=== PATIENT | female | born 1950 | race Caucasian/White ===

== ENCOUNTER 2020-05-30 11:16 | Outpatient (CLI) | payer MEDICARE, SELFPAY ==
--- NOTE | ~2020-05-30 | XR_ITS ---
EXAMINATION: XR shoulder LT min 2V DATE: 05/30/2020 11:47 INDICATION: Left shoulder pain. TECHNIQUE: 4 views of left shoulder were obtained. COMPARISON: None. FINDINGS: Bone alignment is normal. No fracture. There is mild osteoarthritis of glenohumeral joint a nd acromioclavicular joint. IMPRESSION: 1. Mild polyarticular osteoarthritis. Reviewed, dictated and finalized at location A.
== END 2020-05-30 11:17 | disposition home or self-care (01) ==
PROVIDERS: PCP Internal Medicine; Visit Provider Physician Assistant
DX: M19.012 Primary osteoarthritis, left shoulder (principal)
CPT/HCPCS: 73030

== ENCOUNTER 2021-04-06 14:50 | Outpatient (CLI) | payer MEDICARE, SELFPAY ==
--- NOTE | ~2021-04-06 | MM_ITS ---
EXAMINATION: MM screening lc BI w jewel HISTORY: Screening TECHNIQUE: Craniocaudal and mediolateral oblique 3-D tomosynthesis images were obtained and synthetic 2-D images were generated. CAD analysis was submitted and interpreted. COMPARISON: Comparison to multiple prior studies sequentially, with oldest reviewed study dated 06/2013. BREAST PARENCHYMAL COMPOSITION: The breasts are heterogeneously dense, which may obscure small masses . FINDINGS: There is no evidence of suspicious mass, calcification, or architectural distortion to sugg est malignancy in either breast. There has been no suspicious interval change. IMPRESSION: 1. No mammographic evidence of malignancy. 2. Recommend routine screening mammography in one year. BI-RADS Category 1: Negative Reviewed, dictated and finalized at location A.
== END 2021-04-06 14:51 | disposition home or self-care (01) ==
LOC: ANHIMG 14:52
PROVIDERS: PCP Internal Medicine; Visit Provider Obstetrics & Gynecology
DX: Z12.31 Encounter for screening mammogram for malignant neoplasm of breast (principal)
CPT/HCPCS: 77063; 77067

== ENCOUNTER 2021-05-08 01:34 | Day surgery (SDC) | payer MEDICARE, SELFPAY ==
[2021-04-26 13:54] VITALS: BMI 21.3
[2021-05-08 09:05] VITALS: BP 151/83; PULSE 85; RESP 18; TEMP 36.7; O2SAT 97; BMI 20.9
[2021-05-08] MEDS: LACTATED RINGERS 1,000 ML 150 ML IV CONT (09:15)
--- NOTE | 2021-05-08 09:19 | WPDANESEPPF ---
Anes - Initial Pre Proc Eval Procedure: Operation Date: 05/08/21 10:00 Proposed Procedures p Esophagogastroduodenoscopy & Colonoscopy - Rickey Turner MD Date/Time: 05/08/21 09:19 Surgeon: Rickey Turner MD Pre Op Diagnosis: GERD, abnormal stools Patient Data Age: 70 Gender: F Height: 1.68 m Weight: 59 kg Last Vital Signs Temp 98.1 F 05/08/21 09:05 Pulse 85 05/08/21 09:05 Resp 18 05/08/21 09:05 BP 151/83 H 05/08/21 09:05 Pulse Ox 97 05/08/21 09:05 Allergies Allergy/AdvReac Type Severity Reaction Status Date / Time Penicillins Allergy Severe Hives Verified 05/08/21 09:02 Home Medications Medication Instructions Recorded Confirmed Type albuterol sulfate 90 mcg/actuation 2 puff INHALATION Q4-6H PRN gm 10/05/19 05/08/21 History aerosol inhaler clobetasol 0.05 % scalp solution 1 applic TOPICAL BID 10/05/19 05/08/21 History risedronate 5 mg tablet 5 mg PO WEEKLY 10/05/19 05/08/21 History citalopram 40 mg tablet 40 mg PO DAILY #90 tablet 04/18/21 05/08/21 Rx lisinopril 40 mg tablet 40 mg PO DAILY #90 tablet 04/18/21 05/08/21 Rx simvastatin 80 mg tablet 80 mg PO DAILY #90 tablet 04/18/21 05/08/21 Rx montelukast 10 mg PO DAILY PRN 04/26/21 05/08/21 History Patient hx anesthesia problems: none Family hx anesthesia problems: none PMFSH Past Medical History Medical History (Updated 05/08/21 @ 09:15 by Shai Lopes MD) Arthritis Asthma Essential (primary) hypertension Gastro-esophageal reflux disease without esophagitis Hypercholesterolemia Family History Family History Sibling Patient's brother is in good health Family history of primary malignant neoplasm of liver, Onset Age: 36 Patient's sister is Mother Cerebrovascular accident, Onset Age: 72 Patient's mother is Father Patient's father is Social History Social History (Reviewed 04/18/21 @ 10:21 by MARY Ozuna Smoking packs per day: 1 Smoking cigarettes per day: 20.0 Years smoked: 40 Smoking pack-years: 40.00 Smoking status: Former smoker Second hand tobacco smoke exposure: No Smoking end date: 11/03/09 Alcohol intake: current Alcohol use details: Monthly Substance use: never Living arrangements: with family Spiritual care concerns: No Anes - Eval Final PreProcedure Day of Procedure 05/08/21 09:19 Patient weight: normal Heart: regular rate and rhythm Lungs: clear to auscultation Airway: Mallampati scale class II Neurological: alert and oriented Last oral intake: >/= 8 hours ASA classification: III Emergent: no Anesthetic plan: proceed Anesthesia type and monitoring: general GIVS and standard monitoring Informed Consent: The patient's anesthetic plan and its attendant risks and benefits were discussed with the patient/family/POA. Questions were solicited and answers provided to the satisfaction of the patient/family/POA.
--- NOTE | 2021-05-08 09:32 | WPDGICN ---
Assessment and Plan Assessment and plan (1) GERD (gastroesophageal reflux disease): Code(s): K21.9 - Gastro-esophageal reflux disease without esophagitis Status: Acute Assessment and Plan: Patient has a history of heartburn. This occurs intermittently. In the past been felt to have acid reflux disease plan to perform EGD to assess more thoroughly. Especially with feel sensation of lump in the throat. (2) Dysphagia: Code(s): R13.10 - Dysphagia, unspecified Status: Acute Assessment and Plan: Patient feels discomfort in the upper chest. Sometimes worse with eating. She is able to eat without difficulty. However has discomfort and soreness in the upper throat feels as though something may be caught this area but is able to swallow without difficulty. Cannot exclude a globus type phenomenon. Plan to assess more thoroughly with EGD. (3) Encounter for screening colonoscopy: Code(s): Z12.11 - Encounter for screening for malignant neoplasm of colon Status: Acute Assessment and Plan: Neoplasia screening colonoscopy advised. Patient appears be at average risk for colon polyps. This procedure follow separately. GI Consult Note Consult date/time: 05/08/21 09:32 HPI: Charlene Varma is a 70 year old female Presents for both screening colonoscopy and EGD. Patient desires neoplasia screening. Her weight appetite bowel movements are normal. She has no abdominal pain. She has not had bleeding. There is no family history of colon polyps. Has been many years since previous colonoscopy. Patient also complains of sore spot in the upper portion of her throat. She has feels a lump in this area. She feels as though a pill may be stuck. This occurs intermittently. There is no specific aggravating or alleviating factors. Patient is able to eat without difficulty. She has no weight loss. She has had no bleeding. In the past she has had heartburn. This is worsened since November. She has felt have underlying acid reflux disease. Currently on no specific medications for this however. Review of Systems Review of Systems: All systems reviewed & are unremarkable except as noted in HPI and below [facility] Past Medical History Medical History (Updated 05/08/21 @ 09:34 by Rickey Turner MD) Arthritis Asthma Essential (primary) hypertension Gastro-esophageal reflux disease without esophagitis Hypercholesterolemia Family History Family History Sibling Patient's brother is in good health Family history of primary malignant neoplasm of liver, Onset Age: 36 Patient's sister is Mother Cerebrovascular accident, Onset Age: 72 Patient's mother is Father Patient's father is Social History Social History Smoking packs per day: 1 Smoking cigarettes per day: 20.0 Years smoked: 40 Smoking pack-years: 40.00 Smoking status: Former smoker Second hand tobacco smoke exposure: No Smoking end date: 11/03/09 Alcohol intake: current Alcohol use details: Monthly Substance use: never Living arrangements: with family Spiritual care concerns: No Meds Home Medications and Allergies Home Medications Medication Instructions Recorded Confirmed Type albuterol sulfate 90 mcg/actuation 2 puff INHALATION Q4-6H PRN gm 10/05/19 05/08/21 History aerosol inhaler clobetasol 0.05 % scalp solution 1 applic TOPICAL BID 10/05/19 05/08/21 History risedronate 5 mg tablet 5 mg PO WEEKLY 10/05/19 05/08/21 History citalopram 40 mg tablet 40 mg PO DAILY #90 tablet 04/18/21 05/08/21 Rx lisinopril 40 mg tablet 40 mg PO DAILY #90 tablet 04/18/21 05/08/21 Rx simvastatin 80 mg tablet 80 mg PO DAILY #90 tablet 04/18/21 05/08/21 Rx montelukast 10 mg PO DAILY PRN 04/26/21 05/08/21 History Allergies Allergy/A
--- NOTE | 2021-05-08 10:47 | SUR.OPER ---
EGD START 1016, STOP 1025 COLONOSCOPY START 1034, STOP 1046
[2021-05-08 10:50] VITALS: BP 94/41; PULSE 69; RESP 24; O2SAT 100
[2021-05-08 11:00] VITALS: BP 103/66; PULSE 67; RESP 17; O2SAT 100
[2021-05-08 11:10] VITALS: BP 118/75; PULSE 60; RESP 28; O2SAT 98
== END 2021-05-08 11:40 | disposition home or self-care (01) ==
PROVIDERS: PCP Internal Medicine; Visit Provider Internal Medicine Gastroenterology
PROC: 0DJ08ZZ Inspection of Upper Intestinal Tract, Via Natural or Artificial Opening Endoscopic (ICD-10-PCS; CPT 43235; principal; 2021-05-08 10:00)
DX: Z12.11 Encounter for screening for malignant neoplasm of colon (principal); K44.9 Diaphragmatic hernia without obstruction or gangrene; K22.2 Esophageal obstruction; K64.8 Other hemorrhoids; K21.9 Gastro-esophageal reflux disease without esophagitis; R19.5 Other fecal abnormalities; Z79.51 Long term (current) use of inhaled steroids; M19.90 Unspecified osteoarthritis, unspecified site; J45.909 Unspecified asthma, uncomplicated; I10 Essential (primary) hypertension; E78.00 Pure hypercholesterolemia, unspecified; Z87.891 Personal history of nicotine dependence; R13.19 Other dysphagia
CPT/HCPCS: 43249; G0121; C1726; J2704; J7120

== ENCOUNTER 2023-06-05 07:52 | Outpatient (CLI) | payer MEDICARE, SELFPAY ==
--- NOTE | ~2023-06-05 | MM_ITS ---
EXAMINATION: MM screening lc BI w jewel HISTORY: Screening mammogram TECHNIQUE: Craniocaudal and mediolateral oblique 3-D tomosynthesis images were obtained and synthetic 2-D images were generated. CAD analysis was submitted and interpreted. COMPARISON: 04/2021, 03/16/2019, 07/31/2017 bilateral screening mammogram examinations BREAST PARENCHYMAL COMPOSITION: There are scattered areas of fibroglandular density. FINDINGS: There is no evidence of suspicious mass, calcification, or architectural distortion to sugg est malignancy in either breast. There has been no suspicious interval change. IMPRESSION: 1. No mammographic evidence of malignancy. 2. Recommend routine screening mammography in one year. BI-RADS Category 1: Negative Reviewed, dictated and finalized at location A.
== END 2023-06-05 07:53 | disposition home or self-care (01) ==
PROVIDERS: PCP Internal Medicine; Visit Provider Obstetrics & Gynecology
DX: Z12.31 Encounter for screening mammogram for malignant neoplasm of breast (principal)
CPT/HCPCS: 77063; 77067

== ENCOUNTER 2024-12-30 10:11 | Outpatient (CLI) | payer MEDICARE, SELFPAY | END 2024-12-30 10:12 | disposition home or self-care (01) | LOC: ANHIMG 10:13 | PROVIDERS: PCP Internal Medicine; Visit Provider Internal Medicine | DX: Z12.31 Encounter for screening mammogram for malignant neoplasm of breast (principal) | CPT/HCPCS: 77063; 77067 ==

== ENCOUNTER 2025-02-28 09:45 | Outpatient (CLI) | payer MEDICARE, SELFPAY ==
--- NOTE | ~2025-02-28 | XR_ITS ---
EXAMINATION: XR barium swallow DATE: 02/28/2025 11:17 INDICATION: Dysphagia TECHNIQUE: The patient drank thick barium and thin barium. Fluoroscopy of the hypopharynx and esophagus was performed. Fluoroscopy exposure time was 2.5 minutes. The total number of images was 45. The dose-area product was 25.3 Gy-cm^2. COMPARISON: None. FINDINGS: No penetration or aspiration with thin liquids. Contrast extended to the level of the distal esophagus only. After approximately 30 minutes, the lowe r esophageal sphincter relaxed allowing for passage of a small trickle of contrast into the decompres sed stomach. The lower esophageal sphincter allowed a medial to lateral opening of approximately 3.4 mm prior to e ntering the stomach. The upper third of the esophagus dilated to approximately 5.4 cm in medial to lateral dimension prior to relaxation of the lower esophageal sphincter with significant tertiary retractions and a large am ount of reflux identified. IMPRESSION: Findings at the level of the lower esophageal sphincter for which cross-sectional imaging (contrast-e nhanced CT examination of the abdomen and pelvis) is recommended for further evaluation. Reviewed, dictated and finalized at location A. IMPRESSION: Findings at the level of the lower esophageal sphincter for which cross-section al imaging (contrast-enhanced CT examination of the abdomen and pelvis) is jose mmended for further evaluation.
--- OUTSIDE RECORDS SUMMARY | 2025-02-28 10:49 | XMS_ITS | Referral Summary ---
Author Organization [facility] Address [facility] [place] [address] Care Team Providers Care Felting Machine Operator Helper Name Role Phone Urban Sommer DO Primary Care Provider [phone] Encounters Date Type Department Care Team Description 02/11/2025 Telephone [facility] [address] [place] [phone] Filiberto Sibley, RN 02/11/2025 Telephone [facility] [address] [place] [phone] Filiberto Sibley, RN 02/10/2025 [facility] [address] [place] [phone] Filiberto Sibley RN 02/10/2025 8:22 AM CDT - 02/10/2025 11:59 PM CDT Hospital Encounter [address] [phone] Dysphagia, unspecified type Discharge Disposition: Discharge to home or self care 02/04/[address] [phone] Emily Mcdermott RN from Last 3 Months Allergies Active Allergy Reactions Criticality Noted Date Comments Penicillins Anaphylaxis High 02/04/2025 Medications lisinopriL (PRINIVIL,ZESTR IL) 40 mg tablet Take 1 tablet (40 mg total) by mouth daily 11/12/2024 Active simvastatin (ZOCOR) 80 mg tablet Take 1 tablet (80 mg total) by mouth daily 11/12/2024 Active metoprolol XL (TOPROL-XL) 50 mg extended release tablet Take 1 tablet (50 mg total) by mouth daily 11/22/2024 Active citalopram (CeleXA) 40 mg tablet Take 1 tablet (40 mg total) by mouth daily 11/12/2024 Active alendronate (FOSAMAX) 70 mg tablet Take 1 tablet (70 mg total) by mouth every 7 days 12/08/2024 Active ALPRAZolam (XANAX) 0.25 mg tablet Take 2 tablets (0.5 mg total) by mouth nightly as needed for anxiety 01/24/2025 Active Social History Tobacco Use Types Packs/Day Years Used Date Smoking Tobacco: Former Cigarettes Q uit: 2013 Tobacco Cessation:Counseling Given: Not Answered Personal Safety Answer Date Recorded Have you ever been in or are you currently in a harmful physical or emotional relationship or is someone making you feel afraid or unsafe? 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 Gender Identity Not on file Sexual Orientation Not on file Last Filed Vital Signs Vital Sign Reading Time Taken Comments Blood Pressure 200/84 02/10/2025 8:30 AM CDT Pulse 64 02/10/2025 8:30 AM CDT Temperature - - Respiratory Rate - - Oxygen Saturation - - Inhaled Oxygen Concentration - - Weight - - Height - - Body Mass Index - - Plan of Treatment Not on file Insurance A[employer] MEDICARE AETNA MEDICARE Care Teams Felting Machine Operator Helper Relationship Specialty Start Date End Date Urban Sommer DO [address] [facility] [address] [place] [address] PCP - General Internal Medicine 02/10/25
--- OUTSIDE RECORDS SUMMARY | 2025-02-28 10:49 | XMS_ITS | Clinical Summary ---
Author Organization [facility] Address [address] [place] [address] Care Team Providers Care Salt Miner Name Role Phone Urban Sommer DO Primary Care Provider [phone] Allergies Active Allergy Reactions Criticality Noted Date [...] nightly as needed for anxiety 01/24/2025 Active Encounters Date Type Department Care Team Description 02/11/2025 Telephone [facility] [address] [place] [phone] Filiberto Sibley RN 02/11/2025 Telephone [facility] [address] [place] [phone] Filiberto Sibley RN 02/10/2025 8:22 AM CDT - 02/10/2025 11:59 PM CDT Hospital Encounter [facility] [address] [place] [phone] Dysphagia, unspecified type Discharge Disposition: Discharge to home or self care 02/10/2025 Telephone [facility] [address] [place] [phone] Filiberto Sibley RN 02/04/2025 Telephone [facility] [address] [place] [phone] Emily Mcdermott RN from Last 3 Months Surgical History Surgery Date Site/Laterality Comments HYSTERECTOMY BACK SURGERY Medical History Medical History Date Comments Hyperlipidemia Hypertension Social History Tobacco Use Types Packs/Day Years [...] on file 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 Gender Identity Not on file Sexual Orientation Not on file Obstetrics History Last Filed Vital Signs Vital Sign Reading Time Taken Comments Blood Pressure 200/84 02/10/2025 8:30 AM CDT Pulse 64 02/10/2025 8:30 AM CDT Temperature - - Respiratory Rate - - Oxygen Saturation - - Inhaled Oxygen Concentration - - Weight - - Height - - Body Mass Index - - Plan of Treatment Health Maintenance Due Date Last Done Comments Breast Cancer Screening-Mammogram 1952 Colon Cancer Screening-Colonoscopy 1950 Depression Screening 1952 Fall Risk Assessment 1950 Hepatitis C Screening 1950 Osteoporosis Screening-Bone Density Scan 1952 Hepatitis B Screening 1970 Well Visit 65+ 2017 Covid-19 Vaccine (2023-2 5 season) 2025 08/13/2024, 08/27/2023, 08/29/2022, Additional history exists DTaP/Tdap/Td Vaccine (2 - Td or Tdap) 08/09/2028 08/09/2018 Pneumococcal vaccine 65+ Completed 12/12/2022 Zoster Vaccine Completed 12/12/2022, 08/05/2022 Influenza Vaccine Completed 08/13/2024, , 08/05/2022, Additional history exists Insurance [facility] MEDICARE T MEDICARE Care Teams Salt Miner Relationship Specialty Start Date End Date Urban Sommer DO [address] [id number] PCP - General Internal Medicine 02/10/25
== END 2025-02-28 09:46 | disposition home or self-care (01) ==
PROVIDERS: PCP Internal Medicine; Visit Provider Nurse Practitioner
DX: K21.9 Gastro-esophageal reflux disease without esophagitis (principal); K22.89 Other specified disease of esophagus; K44.9 Diaphragmatic hernia without obstruction or gangrene; R13.10 Dysphagia, unspecified
CPT/HCPCS: 74220

== ENCOUNTER 2025-03-07 06:32 | Outpatient (CLI) | payer MEDICARE, SELFPAY ==
--- NOTE | ~2025-03-07 | CT_ITS ---
CT of the Abdomen and Pelvis: Indication: Abnormal barium swallow Technique: 2.5 mm axial scans were obtained through the abdomen and pelvis following intravenous adm inistration of 100 cc of Omnipaque 350. Dose reduction technique was used on this scan by utilizing a utomated exposure control and iterative reconstruction technique. The dose-length product (DLP) was 5 59.07 mGy-cm. Findings: Scans through the lung bases are unremarkable. There is prominent circumferential wall thi ckening visualized distal esophagus. Moderate hiatal hernia present. The liver, spleen, pancreas, gallbladder, adrenals and kidneys are within normal limits. There are ex tensive atherosclerotic calcifications of the aorta and iliac vessels. No lymphadenopathy. No bowel obstruction or bowel wall thickening. There is no evidence to suggest acute appendicitis. Images through the pelvis were performed. Urinary bladder unremarkable. Status post hysterectomy. No pelvic mass seen. No ascites. Impression: Circumferential wall thickening of the visualized distal esophagus. Most of the distal esophagus is e xcluded from the [id number] however, probably related to moderate hiatal hernia which is present. Esophageal neoplasm is consideration versus severe esophagitis. Correlate clinically. Consider dedica bebe chest CT versus endoscopy for further evaluation. Reviewed, dictated and finalized at [facility]. Impression: Circumferential wall thickening of the visualized distal esophagus. Most of the distal esophagus is excluded from the [id number]-[id number] however, probably related to moderate hiatal hernia which is present. Esophageal neoplasm is consideratio n versus severe esophagitis. Correlate clinically. Consider dedicated chest CT versus endoscopy for further evaluation.
--- OUTSIDE RECORDS SUMMARY | 2025-03-07 06:38 | XMS_ITS | Referral Summary ---
Author Organization [facility] Address [address] [place] [address] Care Team Providers Care Wholesale Buyer Name Role Phone Urban Sommer DO Primary Care Provider [phone] Encounters Date Type Department Care Team Description 02/11/2025 Telephone [facility] [address] [place] [phone] Filiberto Sibley, RN 02/11/2025 Telephone [facility] [address] [place] [phone] Filiberto iSbley, RN 02/10/2025 [facility] [address] [place] [phone] Filiberto Sibley RN 02/10/2025 8:22 AM CDT - 02/10/2025 11:59 PM CDT Hospital Encounter [address] [phone] Dysphagia, unspecified type Discharge Disposition: Discharge to home or self care 02/04/[address] [phone] Emily Mcdermott RN from Last [...] on file 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
--- OUTSIDE RECORDS SUMMARY | 2025-03-07 06:38 | XMS_ITS | Clinical Summary ---
Author Organization [facility] Address [address] [place] [address] Care Team Providers Care Frame Hand Name Role Phone Urban Sommer DO Primary Care Provider [phone] Allergies Active Allergy Reactions Criticality Noted Date [...] Type Department Care Team Description 02/11/2025 Telephone [facility] [address] [place] [phone] Filiberto Sibley RN 02/11/2025 Telephone [facility] [address] [place] [phone] Filiberto Sibley RN 02/10/2025 8:22 AM CDT - 02/10/2025 11:59 PM CDT Hospital Encounter [facility] [address] [place] [phone] Dysphagia, unspecified type Discharge Disposition: Discharge to home or self care 02/10/2025 Telephone [facility] [address] [place] [phone] Filiberto Sibley RN 02/04/2025 Telephone [facility] [address] [place] [phone] Emily Mcdermott RN from Last 3 [...] on file 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
[2025-03-07 07:10] LABS: Estimated Glomerular Filt Rate > 60
== END 2025-03-07 06:33 | disposition home or self-care (01) ==
PROVIDERS: PCP Internal Medicine; Visit Provider Nurse Practitioner
DX: R93.5 Abnormal findings on diagnostic imaging of other abdominal regions, including retroperitoneum (principal); K22.89 Other specified disease of esophagus; R14.0 Abdominal distension (gaseous)
CPT/HCPCS: 74177; Q9967

== ENCOUNTER 2025-03-24 01:25 | Day surgery (SDC) | payer MEDICARE, SELFPAY ==
[2025-03-11 12:50] VITALS: BMI 23.8
--- OUTSIDE RECORDS SUMMARY | 2025-03-24 01:42 | XMS_ITS | Referral Summary ---
Author Organization [facility] Address [facility] [place] [address] Care Team Providers Care Crystal Cutter Name Role Phone Urban Sommer DO Primary Care Provider [phone] Encounters Date Type Department Care Team Description 02/11/2025 Telephone [facility] [address] [place] [phone] Filiberto Sibley, RN 02/11/2025 Telephone [facility] [address] [place] [phone] Filiberto Sibley, RN 02/10/2025 [facility] [address] [place] [phone] Filiberto Sibley RN 02/10/2025 8:22 AM CDT - 02/10/2025 11:59 PM CDT Hospital Encounter [address] [phone] Dysphagia, unspecified type Discharge Disposition: Discharge to home or self care 02/04/[address] [phone] Emily Mcdermott RN from Last [...] on file 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
--- OUTSIDE RECORDS SUMMARY | 2025-03-24 01:42 | XMS_ITS | Clinical Summary ---
Author Organization [facility] Address [address] [place] [address] Care Team Providers Care Mixing And Dispensing Supervisor Name Role Phone Urban Sommer DO Primary Care Provider [phone] Allergies Active Allergy Reactions Criticality Noted Date [...] Type Department Care Team Description 02/11/2025 Telephone [facility] [address] [place] [phone] Filiberto Sibley RN 02/11/2025 Telephone [facility] [address] [place] [phone] Filiberto Sibley RN 02/10/2025 8:22 AM CDT - 02/10/2025 11:59 PM CDT Hospital Encounter [facility] [address] [place] [phone] Dysphagia, unspecified type Discharge Disposition: Discharge to home or self care 02/10/2025 Telephone [facility] [address] [place] [phone] Filiberto Sibley RN 02/04/2025 Telephone [facility] [address] [place] [phone] Emily Mcdermott RN from Last 3 [...] on file 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
[2025-03-24 09:23] VITALS: BP 176/83; PULSE 62; RESP 20; TEMP 36.9; O2SAT 96; BMI 23.5
[2025-03-24] MEDS: LACTATED RINGERS 1,000 ML 150 ML IV CONT (09:36)
[2025-03-24 09:37] VITALS: BP 156/91
--- NOTE | 2025-03-24 09:37 | P.PNAN_ITS ---
Anes - Initial Pre Proc Eval Procedure: Operation Date: 03/24/25 10:00 Proposed Procedures p Esophagogastroduodenoscopy - Monroe Stevens MD Date/Time: 03/24/25 09:37 Surgeon: Monroe Stevens MD Pre Op Diagnosis: Other specified disease of esophagus, GERD Patient Data Age: 74 Gender: F Height: 1.68 m Weight: 66 kg Last Vital Signs Temp 36.9 C 03/24/25 09:23 Pulse 62 03/24/25 09:23 Resp 20 03/24/25 09:23 BP 156/91 H 03/24/25 09:37 Pulse Ox 96 03/24/25 09:23 O2 Del Method Room Air 03/24/25 09:23 Allergies Allergy/AdvReac Type Severity Reaction Status Date / Time Penicillins Allergy Severe Hives Verified 03/24/25 09:20 Home Medications ?Medication ?Instructions ?Recorded ?Confirmed ?Type clobetasol 0.05 % scalp solution 1 applic topical BID 10/05/19 03/24/25 History albuterol sulfate 90 mcg/actuation 2 puff inhalation Q4-6H PRN 04/30/22 03/11/25 Rx aerosol inhaler (ProAir HFA) Shortness Of Breath #8.5 grams risedronate 5 mg tablet 5 mg PO DAILY 05/08/22 03/24/25 History alendronate 70 mg tablet 70 mg PO WEEKLY 01/14/24 03/24/25 History citalopram 40 mg tablet 40 mg PO DAILY #90 tabs 04/26/24 03/24/25 Rx lisinopril 40 mg tablet 40 mg PO DAILY #90 tabs 04/26/24 03/24/25 Rx simvastatin 80 mg tablet 80 mg PO DAILY #90 tabs 04/26/24 03/24/25 Rx metoprolol succinate 50 mg 50 mg PO DAILY #90 tabs 09/22/24 03/24/25 Rx tablet,extended release 24 hr alprazolam 0.25 mg tablet (Xanax) 0.25 mg PO BID PRN anxiety #40 tabs 01/24/25 03/11/25 Rx omeprazole 40 mg capsule,delayed 40 mg PO BID #30 caps 02/01/25 03/24/25 Rx release Patient hx anesthesia problems: none Family hx anesthesia problems: none Results Review: All pre-operative results and documents have been reviewed as part of the pre- operative evaluation. [facility] Past Medical History Medical History Arthritis Asthma Essential (primary) hypertension Gastro-esophageal reflux disease without esophagitis Hypercholesterolemia Family History Family History Sibling Patient's brother is in good health Family history of primary malignant neoplasm of liver, Onset Age: 36 Patient's sister is Mother Cerebrovascular accident, Onset Age: 72 Patient's mother is Father Patient's father is Social History Social History Smoking packs per day: 1 Smoking cigarettes per day: 20.0 Smoking status: Former smoker Tobacco type: cigarettes Second hand tobacco smoke exposure: No Smoking end date: 11/03/09 Substance use: never Lack of Transportation: No Lack of Food: Never True Current Housing: I Have Housing Concerned About Future Housing: No Difficulty Paying Gas/Electric Bills: No Difficulty Paying for Meds: No Currently Unemployed: No Education: High School Diploma/GED Difficulty w/ Childcare or Family Care: No Living arrangements: with family Spiritual care concerns: No Anes - Eval Final PreProcedure Day of Procedure 03/24/25 09:37 Patient weight: normal Heart: regular rate and rhythm Lungs: clear to auscultation and normal air movement Airway: Mallampati scale class II Neurological: alert and oriented Last oral intake: >/= 8 hours ASA classification: III Emergent: no Anesthetic plan: proceed Anesthesia type and monitoring: general GIVS and standard monitoring Results Review: All pre-operative results and documents have been reviewed as part of the pre- operative evaluation. Informed Consent: The patient's anesthetic plan and its attendant risks and benefits were discussed with the patient/family/POA. Questions were solicited and answers provided to the satisfaction of the patient/family/POA.
--- NOTE | 2025-03-24 10:03 | P.HP_ITS ---
H&P: HPI History of Present Illness Date/Time: 03/24/25 10:03 Chief Complaint: Dysphagia-GERD Narrative: this patient has been having longstanding intermittent dysphagia and GERD. In 2020 she had a peptic stricture was dilated with an 18 [place] balloon. She apparently had a failed attempt at manometry. She is now referred for EGD. Review of Systems Review of Systems: All systems reviewed & are unremarkable except as noted in HPI and below PMFSH Past Medical History Medical History Arthritis Asthma Essential (primary) hypertension Gastro-esophageal reflux disease without esophagitis Hypercholesterolemia Family History Family History Sibling Patient's brother is in good health Family history of primary malignant neoplasm of liver, Onset Age: 36 Patient's sister is Mother Cerebrovascular accident, Onset Age: 72 Patient's mother is Father Patient's father is Social History Social History Smoking packs per day: 1 Smoking cigarettes per day: 20.0 Smoking status: Former smoker Tobacco type: cigarettes Second hand tobacco smoke exposure: No Smoking end date: 11/03/09 Substance use: never Lack of Transportation: No Lack of Food: Never True Current Housing: I Have Housing Concerned About Future Housing: No Difficulty Paying Gas/Electric Bills: No Difficulty Paying for Meds: No Currently Unemployed: No Education: High School Diploma/GED Difficulty w/ Childcare or Family Care: No Living arrangements: with family Spiritual care concerns: No Meds Home Medications and Allergies Home Medications ?Medication ?Instructions ?Recorded ?Confirmed ?Type clobetasol 0.05 % scalp solution 1 applic topical BID 10/05/19 03/24/25 History albuterol sulfate 90 mcg/actuation 2 puff inhalation Q4-6H PRN 04/30/22 03/11/25 Rx aerosol inhaler (ProAir HFA) Shortness Of Breath #8.5 grams risedronate 5 mg tablet 5 mg PO DAILY 05/08/22 03/24/25 History alendronate 70 mg tablet 70 mg PO WEEKLY 01/14/24 03/24/25 History citalopram 40 mg tablet 40 mg PO DAILY #90 tabs 04/26/24 03/24/25 Rx lisinopril 40 mg tablet 40 mg PO DAILY #90 tabs 04/26/24 03/24/25 Rx simvastatin 80 mg tablet 80 mg PO DAILY #90 tabs 04/26/24 03/24/25 Rx metoprolol succinate 50 mg 50 mg PO DAILY #90 tabs 09/22/24 03/24/25 Rx tablet,extended release 24 hr alprazolam 0.25 mg tablet (Xanax) 0.25 mg PO BID PRN anxiety #40 tabs 01/24/25 03/11/25 Rx omeprazole 40 mg capsule,delayed 40 mg PO BID #30 caps 02/01/25 03/24/25 Rx release Allergies Allergy/AdvReac Type Severity Reaction Status Date / Time Penicillins Allergy Severe Hives Verified 03/24/25 09:20 Vital Signs Vital Signs - 24 hr 03/24/25 09:23 03/24/25 09:37 Temperature 98.4 F Pulse Rate 62 Respiratory Rate 20 Blood Pressure 176/83 H 156/91 H Pulse Oximetry 96 Oxygen Delivery Room Air Exam Const: General: cooperative and healthy appearing Resp: Effort & Inspection: normal respiratory effort and able to speak in complete sentences Auscultation: clear to auscultation bilaterally Cardio: Rate: regular rate Rhythm: regular rhythm GI: Inspection: normal to inspection GI Palp: No No hepatosplenomegaly present Auscultation: normal bowel sounds Rectal Exam: deferred Skin: General skin exam: normal color Psych: Appearance: grossly normal Mental Status: mental status grossly normal Assessment and Plan Assessment and plan (1) GERD (gastroesophageal reflux disease): Qualifiers: Esophagitis presence: without esophagitis Qualified Code(s): K21.9 - Gastro-esophageal reflux disease without esophagitis Code(s): K21.9 - Gastro-esophageal reflux disease without esophagitis Status: Acute Assessment and Plan: The patient is deemed a good candidate for the procedure. Consent signed. Will proceed. (2) Dysphagia: Qualifiers: Dysphagia type: esophageal phase Qualified Code(s): R13.19 - Other dysphagia Code(s): R13.10 - Dysphagia, unspecified Status: Acute
[2025-03-24 10:27] VITALS: BP 141/72; PULSE 74; RESP 20; O2SAT 98
[2025-03-24 10:37] VITALS: BP 159/82; PULSE 70; RESP 20; O2SAT 98
[2025-03-24 10:47] VITALS: BP 139/88; PULSE 68; RESP 20; O2SAT 98
== END 2025-03-24 11:00 | disposition home or self-care (01) ==
PROVIDERS: PCP Internal Medicine; Referring Provider Nurse Practitioner; Visit Provider Internal Medicine Gastroenterology
PROC: 0DJ08ZZ Inspection of Upper Intestinal Tract, Via Natural or Artificial Opening Endoscopic (ICD-10-PCS; CPT 43235; principal; 2025-03-24 10:00)
DX: K21.9 Gastro-esophageal reflux disease without esophagitis (principal); K22.0 Achalasia of cardia; K29.30 Chronic superficial gastritis without bleeding; K44.9 Diaphragmatic hernia without obstruction or gangrene; J45.909 Unspecified asthma, uncomplicated; I10 Essential (primary) hypertension; E78.00 Pure hypercholesterolemia, unspecified; M19.90 Unspecified osteoarthritis, unspecified site; Z79.51 Long term (current) use of inhaled steroids; Z79.83 Long term (current) use of bisphosphonates; Z87.891 Personal history of nicotine dependence; Z80.0 Family history of malignant neoplasm of digestive organs; Z82.49 Family history of ischemic heart disease and other diseases of the circulatory system
CPT/HCPCS: 43235; J2003; J2704; J7120